=== PATIENT | female | born 2000 | race Caucasian/White ===

== ENCOUNTER 2024-09-27 14:52 | Emergency (ER) | payer SELFPAY ==
[~2024-09-27] VITALS: Ht 165.1 cm; Wt 60.0 kg
[2024-09-27 14:57] VITALS: BP 127/88; PULSE 94; RESP 16; TEMP 37.1; O2SAT 97
== END 2024-09-27 15:10 | disposition home or self-care (01) ==
LOC: ER 14:52
DX: F41.9 Anxiety disorder, unspecified (principal)
CPT/HCPCS: 99283